=== PATIENT | female | born 1985 | race Caucasian/White ===

== ENCOUNTER 2024-11-26 00:33 | Emergency (ER) | payer OTHER ==
[2024-11-26] MEDS ORDERED: IBUPROFEN 200 MG TAB PO ONE (00:59)
[2024-11-26] MEDS ORDERED: IBUPROFEN 400 MG TAB ONE (00:59)
--- NOTE | 2024-11-26 03:04 | ER ---
Nurse's Notes [facility] Name: Skylar Alfaro Age: 39 yrs Sex: Female : 1985 Arrival Date: 11/26/2024 Time: 00:33 Bed 12 Private MD: Diagnosis: Pain in left ankle and joints of left foot Presentation: 11/26 00:50 Chief complaint: Patient states: rolled left ankle while taking out trash. hx of ELS lg3 and im supposed to be wearing braces. Coronavirus screen: Client denies travel out of the [place] in the last 14 days. At this time, the client does not indicate any symptoms associated with coronavirus-19. Ebola Screen: No symptoms or risks identified at this time. Initial Sepsis Screen: Does the patient meet any 2 criteria? No. Patient's initial sepsis screen is negative. Does the patient have a suspected source of infection? No. Patient's initial sepsis screen is negative. Risk Assessment: Do you want to hurt yourself or someone else? Patient reports no desire to harm self or others. Onset of symptoms was November 26, 2024. 00:50 Method Of Arrival: Wheelchair lg3 00:50 Acuity: NAOMI 4 lg3 Triage Assessment: 00:52 General: Appears in no apparent distress. uncomfortable, Behavior is calm, cooperative. lg3 Pain: Complains of pain in left medial malleolus Pain currently is 9 out of 10 on a pain scale. EENT: No deficits noted. No signs and/or symptoms were reported regarding the EENT system. Neuro: No deficits noted. Prater Agitation-Sedation Scale (RASS): 0 - Alert and Calm Level of Consciousness is awake, alert, obeys commands, Oriented to person, place, time, situation. Cardiovascular: No deficits noted. Denies chest pain, shortness of breath, Capillary refill < 3 seconds Clubbing of nail beds is absent JVD is absent Patient's skin is warm and dry. Respiratory: No deficits noted. Airway is patent Respiratory effort is even, unlabored, Respiratory pattern is regular, symmetrical. GI: No deficits noted. No signs and/or symptoms were reported involving the gastrointestinal system. : No signs and/or symptoms were reported regarding the genitourinary system. Derm: No deficits noted. Skin is intact, is healthy with good turgor, Skin is dry, Skin is normal, Skin temperature is warm. Musculoskeletal: Circulation, motion, and sensation intact. Range of motion: intact in all extremities, Swelling present in left ankle. 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, Not lg3 Historical: - Allergies: 00:52 Benadryl; lg3 00:52 Motrin; lg3 00:52 leviquin; lg3 00:52 vitamin E; lg3 - Home Meds: 00:52 Metoprolol Tartrate Oral [Active]; Triamterene-Hydrochlorothiazid Oral [Active]; lg3 Trazodone Oral [Active]; Metformin Oral [Active]; Synthroid Oral [Active]; Trulicity subcutaneous [Active]; gabapentin oral [Active]; Albuterol Inhl [Active]; Lexapro Oral [Active]; - PMHx: 00:52 Asthma; Hypertensive disorder; Hypothyroidism; Diabetes mellitus; Anxiety; lg3 Hypercholesterolemia; whit-danlos; Heart murmur; - PSHx: 00:52 Total abdominal hysterectomy; Cholecystectomy; bilateral knee; lg3 - Immunization history:: Adult Immunizations up to date. - Infectious Disease History:: Denies. - Social history:: Smoking status: Patient denies any tobacco usage or history of. Patient/guardian denies using alcohol, street drugs. Screenin:01 [facility] ED Fall Risk Assessment (Adult) History of falling in the last 3 months, lg3 including since admission Yes- single mechanical fall (1 pt) Confusion or Disorientation No (0 pts) Intoxicated or Sedated No (0 pts) Impaired Gait No (0 pts) Mobility Assist Device Used No (0 pt) Altered Elimination No (0 pt) Score/Fall Risk Level 0 - 2 = Low Risk Oriented to surroundings, Maintained a safe environment, Educated pt \T\ family on fall prevention, incl call for assistance when getting out of bed, Assessed \T\ reinforced patient's understanding of fall precautions. Abuse screen: Denies threats or abuse. Denies injuries from another. Nutritional screening: No deficits noted. Tuberculosis screening: No symptoms or risk factors identified. Assessment: 01:01 General: see triage assessment. lg3 02:59 Reassessment: Patient appears in no apparent distress at this time. No changes from lg3 previously documented assessment. Patient and/or family updated on plan of care and expected duration. Pain level reassessed. Patient is alert, oriented x 3, equal unlabored respirations, skin warm/dry/pink. Vital Signs: 00:50 BP 137 / 79; Pulse 94; Resp 17 S; Temp 98.1(O); Pulse Ox 98% on R/A; Weight 130.18 kg lg3 (R); Height 5 ft. 4 in. (R); Pain 9/10; 03:02 BP 129 / 87; Pulse 88; Resp 16; Temp 98.7; Pulse Ox 100% on R/A; vk 00:50 Body Mass Index 49.26 (130.18 kg, 162.56 cm) lg3 00:50 Pain Scale: Adult lg3 ED Course: 00:40 Patient arrived in ED. im 00:41 Mike Flores DO is Attending Physician. ms3 00:52 Triage completed. lg3 00:52 Arm band placed on right wrist. lg3 01:01 Patient has correct armband on for positive identification. lg3 01:41 Ankle Left 3 View XRAY In Process Unspecified. EDMS 03:03 Adryan Ayala MD is Referral Physician. ms3 03:31 No provider procedures requiring assistance completed. Patient did not have IV access lg3 during this emergency room visit. 03:31 Chris wrap to left ankle. lg3 Administered Medications: 01:05 Drug: Ibuprofen PO 600 mg PO once Route: PO; lg3 03:30 Follow up: Response: No adverse reaction lg3 Medication: 01:01 VIS not applicable for this client. lg3 Outcome: 03:04 Discharge ordered by . ms3 03:31 Discharged to home ambulatory, with crutches, lg3 03:31 Condition: stable 03:31 Discharge instructions given to patient, Instructed on discharge instructions, follow up and referral plans. Demonstrated understanding of instructions, follow-up care, crutch walking, 03:32 Patient left the ED. lg3 Signatures: Dispatcher [employer] DIAMONDMS Rita Yen RN RN lg3 Mike Flores DO DO ms3 Pratima Rubio Vivian vk
--- NOTE | 2024-11-26 03:04 | EDPHYS ---
Physician Documentation [facility] Name: Skylar Alfaro Age: 39 yrs Sex: Female : 1985 Arrival Date: 11/26/2024 Time: 00:33 Bed 12 Private MD: ED Physician Mike Flores HPI: 11/26 01:12 This 39 yrs old Female presents to ER via Wheelchair with complaints of Ankle Injury - ms3 Left. 01:12 Skylar Alfaro, a 39-year-old female, presents to the emergency department with a ms3 complaint of left ankle pain. 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 The pain is rated as a 7 out of 10 on the pain scale and is described as shooting up to her knee. She has attempted ice and elevation, but these have not alleviated the pain.. 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, Not lg3 Historical: - Allergies: 00:52 Benadryl; lg3 00:52 Motrin; lg3 00:52 leviquin; lg3 00:52 vitamin E; lg3 - Home Meds: 00:52 Metoprolol Tartrate Oral [Active]; Triamterene-Hydrochlorothiazid Oral [Active]; lg3 Trazodone Oral [Active]; Metformin Oral [Active]; Synthroid Oral [Active]; Trulicity subcutaneous [Active]; gabapentin oral [Active]; Albuterol Inhl [Active]; Lexapro Oral [Active]; - PMHx: 00:52 Asthma; Hypertensive disorder; Hypothyroidism; Diabetes mellitus; Anxiety; lg3 Hypercholesterolemia; christian-danlos; Heart murmur; - PSHx: 00:52 Total abdominal hysterectomy; Cholecystectomy; bilateral knee; lg3 - Immunization history:: Adult Immunizations up to date. - Infectious Disease History:: Denies. - Social history:: Smoking status: Patient denies any tobacco usage or history of. Patient/guardian denies using alcohol, street drugs. ROS: 01:12 Constitutional: Negative for fever, and chills. Cardiovascular: Negative for chest ms3 pain, and palpitations. Respiratory: Negative for shortness of breath, cough, wheezing, and pleuritic chest pain, Abdomen/GI: Negative for abdominal pain, nausea, vomiting, diarrhea, and constipation, 01:12 MS/extremity: Positive for pain, of the left medial malleolus, Exam: 01:12 Constitutional: This is a well developed, well nourished patient who is awake, alert, ms3 and in no acute distress. Chest/axilla: Normal chest wall appearance and motion. Nontender with no deformity. Cardiovascular: Regular rate and rhythm with a normal S1 and S2. No gallops, murmurs, or rubs. Normal PMI, no JVD. No pulse deficits. Respiratory: Lungs have equal breath sounds bilaterally, clear to auscultation and percussion. No rales, rhonchi or wheezes noted. No increased work of breathing, no retractions or nasal flaring. Abdomen/GI: Soft, non-tender, with normal bowel sounds. No distension or tympany. No guarding or rebound. No evidence of tenderness throughout. 01:12 Musculoskeletal/extremity: Extremities: noted in the left medial malleolus: pain, tenderness, DP/ PT pulses 2+/4, Vital Signs: 00:50 BP 137 / 79; Pulse 94; Resp 17 S; Temp 98.1(O); Pulse Ox 98% on R/A; Weight 130.18 kg lg3 (R); Height 5 ft. 4 in. (R); Pain 9/10; 03:02 BP 129 / 87; Pulse 88; Resp 16; Temp 98.7; Pulse Ox 100% on R/A; vk 00:50 Body Mass Index 49.26 (130.18 kg, 162.56 cm) lg3 00:50 Pain Scale: Adult lg3 MDM: 00:46 Medical Screening Exam initiated ms3 01:12 Differential diagnosis: fracture, sprain. ms3 08:20 Data reviewed: vital signs, nurses notes, radiologic studies, and as a result, I will ms3 discharge patient. I considered the following discharge prescriptions or medication management in the emergency department Medications were administered in the Emergency Department. See MAR. Independent interpretation of the following test(s) in the Emergency Department X-Ray: My interpretation is Left ankle x-ray reviewed by me does not reveal fracture. Counseling: I had a detailed discussion with the patient and/or guardian regarding the historical points, exam findings, and any diagnostic results supporting the discharge/admit diagnosis, radiology results, the need for outpatient follow up, to return to the emergency department if symptoms worsen or persist or if there are any questions or concerns that arise at home. Special discussion: I discussed with the patient/guardian in detail that at this point there is no indication for admission to the hospital. It is understood, however, that if the symptoms persist or worsen the patient needs to return immediately for re-evaluation. ED course: Discussed x-ray results with the patient. Patient to follow-up with orthopedics in 2 to 3 days. Patient understands and agrees with plan. All questions were answered. Return precautions discussed include worsening symptoms, or any other concerns. No signs of compartment syndrome present. 11/26 00:46 Order name: Ankle Left 3 View XRAY ms3 11/26 03:31 Order name: Chris Wrap; Complete Time: 03:31 lg3 Administered Medications: 01:05 Drug: Ibuprofen PO 600 mg PO once Route: PO; lg3 03:30 Follow up: Response: No adverse reaction lg3 Disposition Summary: 11/26/24 03:04 Discharge Ordered Notes: Location: Home ms3 Condition: Stable ms3 Diagnosis - Pain in left ankle and joints of left foot ms3 Followup: ms3 - With: Adryan Ayala MD - When: 2 - 3 days - Reason: Recheck today's complaints Discharge Instructions: - Discharge Summary Sheet ms3 - Crutch Use, Adult, [id number] ms3 - Ankle Pain ms3 Forms: - Medication Reconciliation Form ms3 - Antibiotic Education ms3 - Prescription Opioid Use ms3 - Patient Portal Instructions ms3 - Leadership Thank You Letter ms3 Signatures: Dispatcher [employer] Rita Cabrera RN RN lg3 Mike Flores DO DO ms3
--- NOTE | 2024-11-26 06:39 | RAD REPORT ---
EXAM: XR Left Ankle Complete, 3 or More Views CLINICAL HISTORY: The patient is 39 years old and is Female; PAIN TECHNIQUE: Frontal, lateral and oblique views of the left ankle. COMPARISON: No relevant prior studies available. FINDINGS: BONES/JOINTS: Unremarkable. No acute fracture. No dislocation. SOFT TISSUES: Soft tissue swelling of the lower leg is present. IMPRESSION: Soft tissue swelling of the lower leg is present. No underlying acute bony abnormality. Electronically signed by: Gina Guidry MD 11/26/2024 02:[address] [facility] Due to temporary technical issues with the PACS/[facility] reporting system, reports are being chele d by the in-house radiologist without review as a courtesy to ensure prompt reporting the interpreting radiologist is fully responsible for the content of the report. Transcribed Date/Time: 11/26/2024 6:38 AM
[2024-11-26 08:32] VITALS: BP 129/87; TEMP 98.7; O2SAT 100
== END 2024-11-26 03:32 | disposition home or self-care (01) ==
LOC: ER 00:33
DX: M25.572 Pain in left ankle and joints of left foot (principal)
CPT/HCPCS: 99283

== ENCOUNTER 2025-01-19 20:44 | Emergency (ER) | payer OTHER ==
[2025-01-19] MEDS ORDERED: KETOROLAC 30 MG/ML INJ ONE (21:06)
[2025-01-19] MEDS ORDERED: CODEINE 30MG/APAP 300MG TAB ONE (21:06)
--- NOTE | 2025-01-19 21:12 | RAD REPORT ---
Exam:Knee Right 3 View HISTORY: Right knee pain FINDINGS: No fracture or dislocation seen Soft tissue swelling.
--- NOTE | 2025-01-19 21:33 | ER ---
Nurse's Notes [facility] Name: Skylar Alfaro Age: 39 yrs Sex: Female : 1985 Arrival Date: 01/19/2025 Time: 20:44 Bed 6 Private MD: Diagnosis: Pain in right knee Presentation: 01/19 20:57 Chief complaint: Patient states: c/o right knee pain that started 4 days ago. States me1 the pain starts behind the knee and comes around to the front. 05/09, states pain is "pulling like a rubberband". Denies injury. Coronavirus screen: Vaccine status: Patient reports being unvaccinated. Ebola Screen: No symptoms or risks identified at this time. Initial Sepsis Screen: Does the patient meet any 2 criteria? No. Patient's initial sepsis screen is negative. Does the patient have a suspected source of infection? No. Patient's initial sepsis screen is negative. Risk Assessment: Do you want to hurt yourself or someone else? Patient reports no desire to harm self or others. Onset of symptoms was January 15, 2025. 20:57 Method Of Arrival: Ambulatory me1 20:57 Acuity: NAOMI 4 me1 Triage Assessment: 21:20 General: Appears in no apparent distress. comfortable, Behavior is calm, cooperative, jj7 appropriate for age. 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 - Infectious Disease History:: Denies. - Social history:: Smoking status: Patient/guardian denies using tobacco. Screenin:21 [facility] ED Fall Risk Assessment (Adult) History of falling in the last 3 months, jj7 including since admission No falls in past 3 months (0 pts) Confusion or Disorientation No (0 pts) Intoxicated or Sedated No (0 pts) Impaired Gait No (0 pts) Mobility Assist Device Used No (0 pt) Altered Elimination No (0 pt) Score/Fall Risk Level 0 - 2 = Low Risk Oriented to surroundings, Maintained a safe environment, Educated pt \\T\\ family on fall prevention, incl call for assistance when getting out of bed, Assessed \\T\\ reinforced patient's understanding of fall precautions. Abuse screen: Denies threats or abuse. Nutritional screening: No deficits noted. Tuberculosis screening: No symptoms or risk factors identified. Assessment: 21:13 Pain: Complains of pain in right knee. Musculoskeletal: Swelling present in right leg. jj7 Vital Signs: 20:57 BP 172 / 94; Pulse 94; Resp 20; Temp 98.3; Pulse Ox 100% ; Weight 133.81 kg; Height 5 me1 ft. 4 in. ; Pain 7/10; 21:13 BP 142 / 105; Pulse 76; Resp 20; Pulse Ox 100% ; jj7 21:45 BP 138 / 84; Pulse 73; Resp 20; Temp 98.1; Pulse Ox 99% ; Pain 1/10; jj7 20:57 Body Mass Index 50.64 (133.81 kg, 162.56 cm) me1 20:57 Pain Scale: Adult me1 21:45 Pain Scale: Adult jj7 ED Course: 20:47 Patient arrived in ED. jj6 20:48 [facility] Lug[facility]C [facility] kb 20:48 Kolton Dominguez MD is Attending Physician. kb 20:59 Triage completed. me1 20:59 Arm band placed on Patient placed in an exam room. me1 21:05 Darwin Hernandez, [place] is Primary Nurse. jj7 21:06 Knee Right 3 View XRAY In Process Unspecified. EDMS 21:21 Patient has correct armband on for positive identification. Bed in low position. Call jj7 light in reach. Side rails up X2. Provided Education on: USE OF CALL BONILLA. 21:45 No provider procedures requiring assistance completed. Patient did not have IV access jj7 during this emergency room visit. Administered Medications: 21:12 Drug: Acetaminophen-Codeine PO (300 mg-30 mg) 1 tablet PO once; RASS on ADMIN: Combtv4, jj7 Very Agttd3, Agttd2, Rstlss1, AlertClm0, Drwsy-1, Lt Sdtn-2, Mod Sdtn-3, Dp Sdtn-4, UnArsble-5 Route: PO; 21:45 Follow up: Response: Marked relief of symptoms jj7 21:12 Drug: Ketorolac IM 30 mg IM once Route: IM; Site: right deltoid; jj7 21:44 Follow up: Response: Marked relief of symptoms jj7 Medication: 21:45 VIS not applicable for this client. jj7 Outcome: 21:32 Discharge ordered by MD. florence 21:45 Discharged to home ambulatory, jj7 21:45 Condition: improved 21:45 Discharge instructions given to patient, family, Instructed on discharge instructions, medication usage, Demonstrated understanding of instructions, medications, Prescriptions given X 3, 21:51 Patient left the ED. jj7 Signatures: Dispatcher [employer] EDMeghana Jonas, ROWANC BREAD PAN GREASER-Theresa Cardoza jj6 Darwin Hernandez, RN RN jj7 Starr Morrissey, [place] RN me1 Corrections: (The following items were deleted from the chart) 21:01 20:59 Allergies: leviquin; me1 me1 21:01 20:59 Allergies: Motrin; me1 me1
--- NOTE | 2025-01-19 21:33 | EDPHYS ---
Physician Documentation [facility] Name: Skylar Alfaro Age: 39 yrs Sex: Female : 1985 Arrival Date: 01/19/2025 Time: 20:44 Bed 6 Private MD: ED Physician Kolton Dominguez HPI: 01/19 21:30 This 39 yrs old Female presents to ER via Ambulatory with complaints of Knee Pain, RT kb KNEE. 21:30 Pt is a 39 year old female who presents for right knee pain. States she has increased kb pain to posterior knee when she straightens it and pain to anterior knee (like a rubberband) when she bends it. Denies new injury. States this started upon waking 4 days ago. Did have an injury to this knee 19 years ago. . 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 - Infectious Disease History:: Denies. - Social history:: Smoking status: Patient/guardian denies using tobacco. ROS: 21:29 Constitutional: As per HPI kb Exam: 21:29 Constitutional: This is a well developed, well nourished patient who is awake, alert, kb and in no acute distress. Head/Face: Normocephalic, atraumatic. ENT: Moist Mucous membranes Cardiovascular: Regular rate Respiratory: Respirations even and unlabored. No increased work of breathing. Talking in full sentences Skin: Warm, dry with normal turgor. Normal color. Neuro: Awake and alert, GCS 15, oriented to person, place, time, and situation. 21:29 Musculoskeletal/extremity: Extremities: grossly normal except: noted in the right knee: pain, tenderness, ROM: limited active range of motion due to pain, Circulation is intact in all extremities. Sensation intact. Weight bearing: able to fully bear weight, Vital Signs: 20:57 BP 172 / 94; Pulse 94; Resp 20; Temp 98.3; Pulse Ox 100% ; Weight 133.81 kg; Height 5 me1 ft. 4 in. ; Pain 7/10; 21:13 BP 142 / 105; Pulse 76; Resp 20; Pulse Ox 100% ; jj7 21:45 BP 138 / 84; Pulse 73; Resp 20; Temp 98.1; Pulse Ox 99% ; Pain 1/10; jj7 20:57 Body Mass Index 50.64 (133.81 kg, 162.56 cm) me1 20:57 Pain Scale: Adult me1 21:45 Pain Scale: Adult jj7 MDM: 20:48 Medical Screening Exam initiated kb 21:30 Differential diagnosis: fracture, sprain, strain. Data reviewed: vital signs, nurses kb notes. Counseling: I had a detailed discussion with the patient and/or guardian regarding the historical points, exam findings, and any diagnostic results supporting the discharge/admit diagnosis, radiology results, the need for outpatient follow up, a orthopedic surgeon, to return to the emergency department if symptoms worsen or persist or if there are any questions or concerns that arise at home. 01/19 20:57 Order name: Knee Right 3 View XRAY; Complete Time: 21:15 kb 01/19 21:29 Order name: Chris Wrap; Complete Time: 21:47 kb Administered Medications: 21:12 Drug: Acetaminophen-Codeine PO (300 mg-30 mg) 1 tablet PO once; RASS on ADMIN: Combtv4, jj7 Very Agttd3, Agttd2, Rstlss1, AlertClm0, Drwsy-1, Lt Sdtn-2, Mod Sdtn-3, Dp Sdtn-4, UnArsble-5 Route: PO; 21:45 Follow up: Response: Marked relief of symptoms jj7 21:12 Drug: Ketorolac IM 30 mg IM once Route: IM; Site: right deltoid; jj7 21:44 Follow up: Response: Marked relief of symptoms jj7 Disposition: 22:57 Co-signature as Attending Physician, Kolton Dominguez MD I agree with the assessment sp4 and plan of care. I reviewed the patient's care provided by the Advanced Practice Provider and agree with the diagnosis and treatment plan. Disposition Summary: 01/19/25 21:32 Discharge Ordered Notes: Location: Home kb Condition: Stable kb Diagnosis - Pain in right knee kb Followup: kb - With: Emergency Department - When: As needed - Reason: Worsening of condition Followup: kb - With: Private Physician - When: 2 - 3 days - Reason: Recheck today's complaints, Continuance of care, Re-evaluation by your physician Discharge Instructions: - Discharge Summary Sheet kb - Musculoskeletal Pain kb - Acute Knee Pain, Adult, [id number] kb Forms: - Work release form kb - Medication Reconciliation Form kb - Antibiotic Education kb - Prescription Opioid Use kb - Patient Portal Instructions kb - Leadership Thank You Letter kb Prescriptions: - Diclofenac Sodium 75 mg Oral tablet, delayed release (enteric coated) - take 1 tablet ORAL route 2 times per day As needed; 30 tablet; Refills: 0, kb Product Selection Permitted - orphenadrine citrate 100 mg Oral Tablet Sustained Release - take 1 tablet ORAL route 2 times per day As needed; 20 tablet; Refills: 0, kb Product Selection Permitted Signatures: Dispatcher [employer] EDMeghana Jonas, KILN TRANSFER OPERATOR-C KILN TRANSFER OPERATOR-Darwin Rudolph RN RN jj7 Kolton Dominguez MD MD sp4 Starr Morrissey RN RN me1 Corrections: (The following items were deleted from the chart) 21: 20:59 Allergies: leviquin; me1 me1 21:01 20:59 Allergies: Motrin; me1 me1
[2025-01-19 22:13] VITALS: BP 138/84; TEMP 98.1; O2SAT 99
== END 2025-01-19 21:51 | disposition home or self-care (01) ==
LOC: ER 20:44
DX: M25.561 Pain in right knee (principal)
CPT/HCPCS: 96372; 99284